=== PATIENT | female | born 1980 | race Caucasian/White ===

== ENCOUNTER 2023-06-27 13:46 | Emergency (ER) | payer OTHER, SELFPAY ==
--- NOTE | ~2023-06-27 | XR_ITS ---
XR tibia fibula LT 2V DATE: 06/27/2023 14:34 INDICATION: Fall. Laceration to anterior lower leg TECHNIQUE: AP and lateral views COMPARISON: None FINDINGS: No fracture or dislocation, periosteal reaction or bone destruction is detected. There is s ome bandage material around the anterior mid to lower leg. No radiopaque foreign body is evident. IMPRESSION: No significant bony abnormality Reviewed, dictated and finalized at location A.
[2023-06-27 13:51] VITALS: BP 151/89; PULSE 87; RESP 16; TEMP 36.6; O2SAT 98
--- NOTE | 2023-06-27 14:22 | ED.WOUNDLAC ---
HPI - Wound/Laceration General Chief Complaint: Wound/Laceration Stated Complaint: laceration Time Seen by Provider: 06/27/23 14:06 History of Present Illness HPI narrative: 42-year-old female presents to the emergency department for laceration to her left tib-fib. 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 States there is a fence around the backyard she knocked on the fence to ensure there is no dog. After 2 minute she entered in the backyard to drop off a package and her daughter explaining after her. States she took off running out of the fence and made it without the dogs getting to her, however in the process she cut her left tib-fib. She is unsure which she cut it on. She is not anticoagulated, bleeding is controlled. Denies difficulty with range of motion of her ankle or toes. Last tetanus unknown. Related Data Allergies Allergy/AdvReac Type Severity Reaction Status Date / Time cephalexin [From Keflex] Allergy Hives Verified 06/27/23 13:49 levothyroxine sodium Allergy Unknown Verified 06/27/23 13:49 [From Synthroid] morphine Allergy Migraine Verified 06/27/23 13:49 Review of Systems Review of Systems: CONSTITUTIONAL: Denies fever, chills, or sweats. EYES: Denies visual changes, redness, or discharge. ENT: Denies rhinorrhea, congestion, sore throat, or otalgia. CARDIOVASCULAR: Denies chest pain, palpitations, or edema. RESPIRATORY: Denies cough or dyspnea. GASTROINTESTINAL: Denies abdominal pain, nausea, vomiting, or diarrhea. GENITOURINARY: Denies dysuria or hematuria. SKIN: See HPI MUSCULOSKELETAL: Denies back pain, joint pain, or myalgia. NEUROLOGIC: Denies headache, numbness, or weakness. PSYCHIATRIC: Denies anxiety or depression. Exam Narrative: GENERAL: Well-appearing, well-nourished, and in no acute distress. HEAD: Normocephalic, atraumatic. EYES: PERRLA and EOMI. CHEST: Clear to auscultation. No respiratory distress. HEART: Regular rate and rhythm. No murmur heard. Normal peripheral pulses. EXTREMITIES: Normal range of motion. No edema. SKIN: LLE: cm laceration overlying the anterior tibia. Bleeding controlled. Laceration extends through the adipose tissue but does not involve the fascia or muscular tissue. No vascular structures or foreign bodies visualized. Patient has full dorsiflexion, plantar flexion and toe extension and flexion. Sensation intact throughout. DP pulse 2 +. NEURO: No focal deficits. Alert and oriented x3 Course Vital Signs Vital signs: Vital Signs Temperature 97.9 F 06/27/23 13:51 Pulse Rate 87 06/27/23 13:51 Respiratory Rate 16 06/27/23 13:51 Blood Pressure 151/89 H 06/27/23 13:51 Pulse Oximetry 98 06/27/23 13:51 Temperature 97.9 F 06/27/23 13:51 Pulse Rate 87 06/27/23 13:51 Respiratory Rate 16 06/27/23 13:51 Blood Pressure 151/89 H 06/27/23 13:51 Pulse Oximetry 98 06/27/23 13:51 MDM - Wound/Laceration MDM Narrative Medical decision making narrative: 42-year-old female presents to emergency department for laceration overlying her anterior tibia that occurred prior to arrival. See HPI for further history. Triage vital significant for blood pressure 151/89, otherwise unremarkable. Exam is significant for the above. Tdap updated. X-ray of the tibia / fibula is unremarkable. Wound irrigated extensively with normal saline. Local lidocaine applied with adequate anesthesia and 11 sutures applied without complications. Will start patient on doxycycline for antibiotic prophylaxis given she has Keflex and have her follow-up with her PCP. Encourage suture removal in 7 days and wound care discussed. Strict ED return precautions discussed. She is agreeable with the plan verbalized understanding. Discharged in stable condition. Discharge Plan Discharge Clinical Impression: Laceration Patient Disposition: Home, Self-Care Condition: Stable Ins
[2023-06-27] MEDS: TETANUS,DIPHTHERIA,AC PERTUSSIS ADULT (0.5 ML) BOOSTRIX IM (14:49)
[2023-06-27] MEDS: DOXYCYCLINE HYCLATE 100 MG TABLET PO (17:12)
== END 2023-06-27 17:17 | disposition home or self-care (01) ==
PROVIDERS: Emergency Provider Physician Assistant
DX: S81.812A Laceration without foreign body, left lower leg, initial encounter (principal); X58.XXXA Exposure to other specified factors, initial encounter; Y99.0 Civilian activity done for income or pay; Z23 Encounter for immunization
CPT/HCPCS: 12001; 73590; 90471; 90715; 99283; A9270

== ENCOUNTER 2023-07-07 18:18 | Emergency (ER) | payer OTHER, SELFPAY ==
[2023-07-07 18:46] VITALS: BP 105/63; PULSE 68; RESP 18; TEMP 36.4; O2SAT 97
--- NOTE | 2023-07-07 19:29 | PC.NURSE ---
Suture removal kit and triple abx ointment placed at bedside. Dr. Curtis made aware.
--- NOTE | 2023-07-07 21:51 | ED.LOWEXIN ---
HPI - Extremity Injury (Lower) General Chief Complaint: Extremity Injury, Lower Stated Complaint: stitches left evans Time Seen by Provider: 07/07/23 19:19 History of Present Illness HPI Narrative: Patient had injured her left anterior leg about 10 days ago, had stitches placed, is here for removal. Overall she has been feeling much better and to the wound has been healing well. No complaints. Related Data Allergies Allergy/AdvReac Type Severity Reaction Status Date / Time cephalexin [From Keflex] Allergy Hives Verified 06/27/23 13:49 levothyroxine sodium Allergy Unknown Verified 06/27/23 13:49 [From Synthroid] morphine Allergy Migraine Verified 06/27/23 13:49 Review of Systems Review of Systems: CONST: No fever. HEENT: No sore throat C/V: No chest pain RESP: No cough GI: No abdominal pain : No dysuria. M/S: No joint pain. SKIN: healing wound NEURO: [No headache or focal numbness or weakness] PSYCH: [No depression] Exam Narrative: EXAMINATION OF ORGAN SYSTEMS/BODY AREAS: Constitutional: Vital signs per nursing GENERAL:[No acute distress, non-toxic appearing.] HEAD: Normal with no signs of head trauma. EYES: EOMI, conjunctiva normal ENT: Hearing grossly intact LUNGS: Nonlabored breathing. HEART: [Regular rate and rhythm] ABD: no distension EXT: Normal range of motion SKIN: well-healing wound that is clean, dry, intact, with very minimal redness, no discharge NEURO: [Alert and oriented x 3. No gross focal sensory or strength deficits.] PSYCH: Normal affect Course Vital Signs Vital signs: Vital Signs Temperature 97.5 F L 07/07/23 18:46 Pulse Rate 68 07/07/23 18:46 Respiratory Rate 18 07/07/23 18:46 Blood Pressure 105/63 07/07/23 18:46 Pulse Oximetry 97 07/07/23 18:46 Temperature 97.5 F L 07/07/23 18:46 Pulse Rate 68 07/07/23 18:46 Respiratory Rate 18 07/07/23 18:46 Blood Pressure 105/63 07/07/23 18:46 Pulse Oximetry 97 07/07/23 18:46 MDM - Extremity Injury (Lower) MDM Narrative Medical decision making narrative: patient presenting with suture removal, sutures placed 10 days ago, it does appear to be healing well, No signs of infection or dehiscence, 10 total sutures removed and patient tolerated this well, it is stressed and she has follow-up with primary care doctor. Discharge Plan Discharge Clinical Impression: Encounter for removal of sutures Patient Disposition: Home, Self-Care Condition: Stable Instructions: Antibiotic Form, Stitches Removal (ED) Additional Instructions: Please continue with wound care, you can come back to the hospital for any further issues. Prescriptions: No Action doxycycline monohydrate 100 mg capsule 100 mg PO BID Qty: 14 0RF Follow-up/Referrals: UNKNOWN,DOCTOR [Primary Care Provider] -
== END 2023-07-07 20:03 | disposition home or self-care (01) ==
PROVIDERS: Emergency Provider Emergency Medicine
DX: S81.802D Unspecified open wound, left lower leg, subsequent encounter (principal); X58.XXXD Exposure to other specified factors, subsequent encounter
CPT/HCPCS: 15853; 99282

== ENCOUNTER 2024-01-13 17:51 | Emergency (ER) | payer OTHER, SELFPAY ==
--- NOTE | ~2024-01-13 | XR_ITS ---
EXAMINATION: XR ankle RT min 3V DATE: 01/13/2024 18:27 INDICATION: Right ankle injury. TECHNIQUE: 4 views of right ankle were obtained. COMPARISON: None. FINDINGS: Bone alignment is normal. No fracture. Joint spaces are normal. IMPRESSION: 1. Normal right ankle. Reviewed, dictated and finalized at location A. IMPRESSION: 1. Normal right ankle.
[2024-01-13 18:04] VITALS: BP 140/85; PULSE 70; RESP 18; TEMP 36.7; O2SAT 99
--- NOTE | 2024-01-13 18:30 | ED.LOWEXIN ---
HPI - Extremity Injury (Lower) General Chief Complaint: Extremity Injury, Lower Stated Complaint: ANKLE INJURY Time Seen by Provider: 01/13/24 18:35 43-year-old female presents with right ankle pain for 5-6 days. 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 Patient states she twisted her ankle and is having right outer ankle pain. Patient denies any other injury General appearance: Well-developed, well-nourished Skin: Normal color Head: Normocephalic, nontraumatic Eyes: Clear conjunctiva ENT: Oropharynx normal, ears normal, nose normal Neck: Supple, nontender Chest and respiratory: Airway patent, no respiratory distress, no accessory muscle use Heart: Regular rate/rhythm Abdomen: Soft, nontender, no organomegaly, quiet bowel sounds Vascular: Normal peripheral pulses, normal capillary refill. Musculoskeletal: Normal range of motion, tenderness right lateral ankle Neurologic: Alert and oriented ?3, LOG HAULER is normal as tested, no gross motor deficit History of Present Illness HPI Narrative: 43-year-old female presents with right ankle pain for 5-6 days. 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 Patient states she twisted her ankle and is having right outer ankle pain. Patient denies any other injury Related Data Allergies Allergy/AdvReac Type Severity Reaction Status Date / Time cephalexin [From Keflex] Allergy Hives Verified 06/27/23 13:49 levothyroxine sodium Allergy Unknown Verified 06/27/23 13:49 [From Synthroid] morphine Allergy Migraine Verified 06/27/23 13:49 Review of Systems Review of Systems: A 10 system review of systems was completed on the patient and is negative except for what is stated in the HPI. Nursing and ancillary documentation was reviewed. Exam Narrative: GENERAL: Well-appearing, well-nourished, and in no acute distress. HEAD: Normocephalic, atraumatic. EYES: PERRLA and EOMI. ENT: Nares clear, no rhinorrhea or epistaxis. Mucous membranes moist. NECK: Supple. CHEST: Clear to auscultation. No respiratory distress. HEART: Regular rate and rhythm. No murmur heard. Normal peripheral pulses. ABDOMEN: Soft, nontender, nondistended, normal active bowel sounds. EXTREMITIES: Normal range of motion. No edema. SKIN: Warm, dry, no rash. NEURO: No focal deficits. Alert and oriented x3. PSYCH: Normal mood and affect. Course Course Emergency Course: X-ray ordered a right ankle Vital Signs Vital signs: Vital Signs Temperature 36.7 C 01/13/24 18:04 Pulse Rate 70 01/13/24 18:04 Respiratory Rate 18 01/13/24 18:04 Blood Pressure 140/85 01/13/24 18:04 Pulse Oximetry 99 01/13/24 18:04 Oxygen Delivery Room Air 01/13/24 18:04 Temperature 36.7 C 01/13/24 18:04 Pulse Rate 70 01/13/24 18:04 Respiratory Rate 18 01/13/24 18:04 Blood Pressure 140/85 01/13/24 18:04 Pulse Oximetry 99 01/13/24 18:04 Oxygen Delivery Room Air 01/13/24 18:04 MDM - Extremity Injury (Lower) MDM Narrative Medical decision making narrative: X-ray negative. Will treat as right ankle sprain with right rice therapy Differential Diagnosis Differential diagnosis: Likely ankle sprain and strain and ankle fracture Imaging Data Radiologist's impression: Negative for fracture Discharge Plan Discharge Clinical Impression: Sprain of ankle, right Patient Disposition: Home, Self-Care Condition: Stable Instructions: Antibiotic Form, Ankle Sprain (ED) Additional Instructions: Take anti-inflammatories Planned eyes 4 times a day 20 minutes symptoms return for worsening symptoms Pr
[2024-01-13 19:25] VITALS: BP 135/85; PULSE 78; RESP 16; TEMP 36.8; O2SAT 98
== END 2024-01-13 19:15 | disposition home or self-care (01) ==
LOC: ANHED 19:10
PROVIDERS: Emergency Provider Nurse Practitioner Family
DX: S93.401A Sprain of unspecified ligament of right ankle, initial encounter (principal); X50.9XXA Other and unspecified overexertion or strenuous movements or postures, initial encounter
CPT/HCPCS: 73610; 99283